=== PATIENT | male | born 1985 | race Caucasian/White ===

== ENCOUNTER 2025-01-08 11:55 | Emergency (ER) | payer MEDICAID ==
[~2025-01-08] VITALS: Ht 180.3 cm; Wt 90.0 kg
[2025-01-08 12:08] VITALS: O2SAT 100
[2025-01-08] MEDS ORDERED: FLUORESCEIN SODIUM 1MG/STRIP BOTHEYE ONE (12:45)
[2025-01-08] MEDS ORDERED: TETRACAINE 0.5% OPHTH DROPS 4ML BOTHEYE ONE (12:45)
[2025-01-08 15:20] VITALS: BP 152/98; PULSE 82; RESP 18; TEMP 37.1; O2SAT 100
[2025-01-08] MEDS: FLUORESCEIN SODIUM 1MG/STRIP BOTHEYE NR (15:25)
[2025-01-08] MEDS: TETRACAINE 0.5% OPHTH DROPS 4ML BOTHEYE NR (15:25)
== END 2025-01-08 15:28 | disposition home or self-care (01) ==
LOC: ER 11:55
DX: T15.90XA Foreign body on external eye, part unspecified, unspecified eye, initial encounter (principal); I10 Essential (primary) hypertension; W44.9XXA Unspecified foreign body entering into or through a natural orifice, initial encounter
CPT/HCPCS: 99283